=== PATIENT | male | born 1965 | race Caucasian/White ===

== ENCOUNTER 2021-01-27 12:36 | Emergency (ER) | payer BC ==
--- NOTE | 2021-01-27 12:41 | ED ---
General Adult HPI - General Stated complaint: Antibodies Time Seen by Provider: 01/27/21 12:38 - History of Present Illness Initial comments: Dictation was produced using [employer] dictation software. please excuse any grammatical, word or spelling errors. Chief Complaint: 56 yo male presents to the emergency department for monoclonal antibodies History of Present Illness: Patient is 56-year-old male who presents emergency Department requesting monoclonal antibodies. She tested positive for coronavirus 4 days ago. He's been symptomatically the last 5 days. Patient is vaccinated and also got his booster. He's been talking to his prior care doctor who told him to come to get monoclonal antibodies. Patient denies any significant symptoms. 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 Those systems with pertinent positive or negative responses have been documented in the HPI. All other systems are other negative and/or noncontributory. PHYSICAL EXAM: General Impression: Alert and oriented x3, not in acute distress HEENT: Normocephalic atraumatic, extra-ocular movements intact, pupils equal and reactive to light bilaterally, mucous membranes moist. Chest: Able to complete full sentences, no retractions, no tachypnea Motor: no focal deficits noted Neurological: CN II-XII grossly intact, no focal motor or sensory deficits noted ambulatory with no consultations Skin: Intact with no visualized rashes Psych: Normal affect and mood ED course: 56-year-old male presents emergency department for monoclonal antibody infusion. Patient's well-appearing at the bedside. Vital signs are stable. Patient is vaccinated and received his booster. Patient is not hypoxic. Non-dyspneic. Patient states he fell the other day and wanted to get an x-ray of his fifth digit on his right hand. X-rays unremarkable for acute processes. Patient is a monoclonal antibody infusion observed in the emergency department for an hour after the infusion found to be stable medical condition. Patient be discharged. - Related Data Allergies Allergy/AdvReac Type Severity Reaction Status Date / Time No Known Allergies Allergy Verified 01/27/21 12:38 Review of Systems ROS Statement: Those systems with pertinent positive or pertinent negative responses have been documented in the HPI. ROS Other: All systems not noted in ROS Statement are negative. Course Vital Signs 01/27/21 12:38 Temperature 98 F Pulse Rate 95 Respiratory 18 Rate Blood Pressure 151/94 O2 Sat by Pulse 98 Oximetry Disposition Clinical Impression: Coronavirus infection Disposition: HOME SELF-CARE Condition: Fair Instructions (If sedation given, give patient instructions): Coronavirus Disease 2019 (COVID-19) Is patient prescribed a controlled substance at d/c from ED?: No Referrals: Kenneth Moore MD [Primary Care Provider] - 1-2 days
[2021-01-27 12:43] VITALS: BP 151/94; PULSE 95; RESP 18; TEMP 98
[2021-01-27] MEDS ORDERED: BAMLANIVIMAB (EUA) 700 MG, ETESEVIMAB (EUA) 1,400 MG in SODIUM CHLORIDE 0.9% 50 ML IVPB ONE (13:30)
--- NOTE | 2021-01-27 13:47 | XR ---
EXAMINATION TYPE: XR finger RT DATE OF EXAM: 01/27/2021 1:11 PM INDICATION: Patient age:Male; 56 years old; Reason for study: 5th digit PIP joint; [facility]. COMPARISON: None TECHNIQUE: 3 views of the right hand were obtained. FINDINGS: Normal alignment of the visualized joints. No acute osseous pathology is identified. No e vidence of soft tissue swelling. Mild joint space narrowing of the proximal interphalangeal joint of the fifth digit. IMPRESSION: No acute osseous pathology. Mild osteoarthrosis changes of the fifth digit.
[2021-01-27] MEDS ORDERED: SODIUM CHLORIDE 0.9% 50 ML IVPB ONE (14:00)
== END 2021-01-27 15:01 | disposition home or self-care (01) ==
LOC: EC 12:36
DX: U07.1 COVID-19 (principal)
CPT/HCPCS: 99283; M0245